=== PATIENT | male | born 1970 | race Caucasian/White ===

== ENCOUNTER 2022-06-09 14:56 | Emergency (ER) | payer OTHER ==
[2022-06-09 15:49] VITALS: RESP 20; TEMP 98
[2022-06-09] MEDS ORDERED: KETOROLAC TROMETHAMINE 30 MG/1 ML VIAL IM ONE (17:07)
[2022-06-09] MEDS ORDERED: LIDOCAINE 5% TOPICAL PATCH TP ONE (17:07)
[2022-06-09] MEDS ORDERED: ACETAMINOPHEN 500 MG TABLET (FP) PO ONE (17:08)
[2022-06-09] MEDS ORDERED: KETOROLAC TROMETHAMINE 30 MG/1 ML VIAL ONE (17:28)
[2022-06-09] MEDS ORDERED: ACETAMINOPHEN 500 MG TABLET (FP) ONE (17:28)
[2022-06-09 17:51] VITALS: BP 110/81; PULSE 78
[2022-06-09] MEDS ORDERED: LIDOCAINE PATCH REMOVAL MC SCH (22:00)
== END 2022-06-09 19:18 | disposition home or self-care (01) ==
LOC: JERFT 14:56
PROC: 3E0233Z Introduction of Anti-inflammatory into Muscle, Percutaneous Approach (ICD-10-PCS; principal; 2022-06-09)
DX: M54.50 Low back pain, unspecified (principal); X50.0XXA Overexertion from strenuous movement or load, initial encounter
CPT/HCPCS: 99284-25